=== PATIENT | male | born 1990 | race African-American/Black ===

== ENCOUNTER 2016-07-19 14:16 | Emergency (ER) | payer SELFPAY ==
[~2016-07-19] VITALS: Ht 177.8 cm; Wt 129.3 kg
[2016-07-19 14:50] VITALS: BP 163/100
[2016-07-19] MEDS ORDERED: KETOROLAC TROMETHAMINE 10 MG TABLET PO ONE (15:00)
[2016-07-19] MEDS ORDERED: ONDANSETRON ODT 4 MG TAB.RAPDIS. PO ONE (15:00)
--- NOTE | 2016-07-19 15:05 | PHYS DOC ---
Past Medical History Past Medical History: No Pertinent History Past Surgical History: No Surgical History Alcohol Use: Occasionally Drug Use: Marijuana Adult General Chief Complaint Chief Complaint: BACK PAIN OR INJURY HPI HPI Patient is a 26 year old male presents to the emergency department with a history of right flank pain that started a few days ago. Patient states he has increase discomfort with urination. States there is a foul odor. Patient denies penile discharge, he is sexually active with multiple partners. He continues to state he has been nauseated. Last BM 2 days ago. Denies fever, chills or diarrhea. Review of Systems Review of Systems Constitutional: Denies fever or chills [] Eyes: Denies change in visual acuity, redness, or eye pain [] HENT: Denies nasal congestion or sore throat [] Respiratory: Denies cough or shortness of breath [] Cardiovascular: No additional information not addressed in HPI [] GI: Denies abdominal pain, vomiting, bloody stools or diarrhea. C/o nausea : dysuria denies hematuria [] Musculoskeletal: Denies back pain or joint pain. C/o right flank pain Integument: Denies rash or skin lesions [] Neurologic: Denies headache, focal weakness or sensory changes [] Endocrine: Denies polyuria or polydipsia [] Current Medications Current Medications Current Medications Medications (Trade) Dose Ordered Sig/[facility] Start Time Stop Time Status Last Admin Dose Admin Ketorolac Tromethamine (Toradol) 10 mg 1X ONCE 07/19/16 15:00 07/19/16 15:01 DC 07/19/16 15:33 10 MG Ondansetron HCl (Zofran Odt) 4 mg 1X ONCE 07/19/16 15:00 07/19/16 15:01 DC 07/19/16 15:32 4 MG Allergies Allergies Allergies Coded Allergies Type Severity Reaction Last Updated Verified No Known Drug Allergies 07/19/16 No Physical Exam Physical Exam Constitutional: Well developed, well nourished, no acute distress, non-toxic appearance. [] HENT: Normocephalic, atraumatic, bilateral external ears normal, oropharynx moist, no oral exudates, nose normal. [] Eyes: PERRLA, EOMI, conjunctiva normal, no discharge. [] Neck: Normal range of motion, no tenderness, supple, no stridor. [] Cardiovascular:Heart rate regular rhythm, no murmur [] Lungs & Thorax: Bilateral breath sounds clear to auscultation [] Abdomen: Bowel sounds hypoactive, soft, no tenderness, no masses, no pulsatile masses. [] Skin: Warm, dry, no erythema, no rash. [] Back: No tenderness, right CVA tenderness. [] Extremities: No tenderness, no cyanosis, no clubbing, ROM intact, no edema. [] Neurologic: Alert and oriented X 3, normal motor function, normal sensory function, no focal deficits noted. [] Psychologic: Affect normal, judgement normal, mood normal. [] Current Patient Data Vital Signs Vital Signs Date Time Temp Pulse Resp B/P (MAP) Pulse Ox O2 Delivery O2 Flow Rate FiO2 07/19/16 14:50 98.4 101 14 100 Room Air 98.4 Lab Values Laboratory Tests Test 07/19/16 15:05 Urine Color Yellow Urine Clarity Cloudy Urine pH 6.5 Urine Specific [place] 1.020 Urine Protein >=300 mg/dL (NEG-TRACE) Urine Glucose (UA) Negative mg/dL (NEG) Urine Ketones (Stick) 40 mg/dL (NEG) Urine Blood Large (NEG) Urine Nitrite Negative (NEG) Urine Bilirubin Negative (NEG) Urine Urobilinogen Dipstick 0.2 mg/dL (0.2 mg/dL) Urine Leukocyte Esterase Small (NEG) Urine RBC >40 /HPF (0-2) Urine WBC 1-4 /HPF (0-4) Urine Squamous Epithelial Cells Occ /LPF Urine Bacteria 0 /HPF (0-FEW) Urine Mucus Slight /LPF EKG EKG [] Radiology/Procedures Radiology/Procedures [facility] [address] [place] [address] IMAGING REPORT Signed PATIENT: ERIC MASSEY ACCOUNT: [id number] : 1990 LOCATION: ER AGE: 26 SEX: M EXAM STATUS: REG ER ORD. PHYSICIAN: REGINO DODSON APRN REASON: right flank pain PROCEDURE: CT ABDOMEN PELVIS WO CONTRAST Is an indication right flank pain for 4 days. Axial images through the abdomen and pelvis were obtained. The examination was tailored for detection of renal and/or ureteral calculi. No IV or gastrointestinal contrast was administered. The lung bases are clear. The liver and spleen appear unremarkable. The gallbladder appears grossly normal. No pancreatic pathology is seen. No adrenal masses are seen. No renal calculi are seen on either side. There is mild right hydronephrosis and right hydroureter to the level of a 2 mm calculus at or just above the right UVJ. No left-sided hydronephrosis or hydroureter is seen. An additional finding in the abdomen is not seen. No additional finding is seen in the pelvis. IMPRESSION: 2 mm right ureteral calculus in the distal right ureter or at the UVJ with associated mild obstructive uropathy. PQRS Compliance Statement: One or more of the following individualized dose reduction techniques were utilized for this examination: 1. Automated exposure control 2. Adjustment of the mA and/or kV according to patient size 3. Use of iterative reconstruction technique DICTATED and SIGNED BY: ANGELITO RANGEL MD DATE: 07/19/16 4535 CC: REGINO DODSON APRN; NO PCP; NON,STAFF ~ [] Course & Med Decision Making Course & Med Decision Making Pertinent Labs and Imaging studies reviewed. (See chart for details) Patient was noted to have a 2 mm stone in the right renal calculus. Patient will be discharged home with hydrocodone for severe pain and discomfort. He'll be provided with Flomax and Zofran also be provided with Cipro for an infected kidney stone. Patient was instructed [place] will cause drowsiness do not take if you need to be alert and oriented. He'll be provided with urologist name and number to follow up with. Signs and symptoms to return back to emergency department as been provided. Patient was instructed to strain all urine. He was also recommended to save the stone if he should pass that and take it to his urology appointment. Patient agrees with discharge instructions treatment regimens and follow-up recommendations. [] Dragon Disclaimer Dragon Disclaimer This electronic medical record was generated, in whole or in part, using a voice recognition dictation system. Departure Departure Impression: Primary Impression: Kidney calculi Disposition: 01 HOME, SELF-CARE Condition: STABLE Referrals: NO PCP (PCP) ALEXEY BUTLER STEVE W MD Patient Instructions: Kidney Stones, [id number] Additional Instructions: Activity as tolerated Medication as prescribed [place] will cause drowsiness do not take if you need to be alert and oriented Drink plenty of water and cranberry juice Avoid cranberry juice cocktail, carbonated beverages, caffeine, alcohol and citrus fruits as these are considered irritants to the bladder Strain all urine If you should pass the stone save it and take if to the urology appointment Followup with urology in 7-10 days Return to emergency department as needed for signs and symptoms that become worse. Scripts Ciprofloxacin Hcl (CIPRO) 500 Mg Tablet 1 TAB PO BID, #14 TAB Prov: REGINO DODSON APRN 07/19/16 Ondansetron (ZOFRAN ODT) 4 Mg Tab.rapdis 1 TAB SL Q8HRS, #10 TAB Prov: REGINO DODSON APRN 07/19/16 Tamsulosin Hcl (FLOMAX) 0.4 Mg Cap.er.24h 1 CAP PO DAILY, #30 CAP 0 Refills Prov: REGINO DODSON APRN 07/19/16 Hydrocodone/Apap 5-325 (NORCO 5-325 TABLET) 1 Each Tablet 1 TAB PO PRN Q6HRS Y for PAIN, #20 TAB 0 Refills Prov: REGINO DODSON APRN 07/19/16 REGINO DODSON APRN Jul 19, 2016 15:05
[2016-07-19 15:20] LABS: BILIRUBIN,URINE NEGATIVE (NEG); GLUCOSE,URINE NEGATIVE (NEG); NITRITE,URINE NEGATIVE (NEG); PH,URINE 6.5; PROTEIN,URINE >=300 mg/dL (NEG-TRACE); UROBILINOGEN,URINE 0.2 mg/dL (0.2 mg/dL)
[2016-07-19 15:40] LABS: BACTERIA,URINE 0 /HPF (0-FEW); RBC,URINE >40 /HPF (0-2); SQUAMOUS EPITHELIAL CELL,UR OCC /LPF
--- NOTE | 2016-07-19 16:05 | RAD ---
Is an indication right flank pain for 4 days. Axial images through the abdomen and pelvis were obtained. The examination was tailored for detection of renal and/or ureteral calculi. No IV or gastrointestinal contrast was administered. The lung bases are clear. The liver and spleen appear unremarkable. The gallbladder appears grossly normal. No pancreatic pathology is seen. No adrenal masses are seen. No renal calculi are seen on either side. There is mild right hydronephrosis and right hydroureter to the level of a 2 mm calculus at or just above the right UVJ. No left-sided hydronephrosis or hydroureter is seen. An additional finding in the abdomen is not seen. No additional finding is seen in the pelvis. IMPRESSION: 2 mm right ureteral calculus in the distal right ureter or at the UVJ with associated mild obstructive uropathy. PQRS Compliance Statement: One or more of the following individualized dose reduction techniques were utilized for this examination: 1. Automated exposure control 2. Adjustment of the mA and/or kV according to patient size 3. Use of iterative reconstruction technique
[2016-07-19] MEDS ORDERED: HYDR-971 PO (16:42)
[2016-07-19] MEDS ORDERED: TAMS0.4C97 PO (16:42)
[2016-07-19] MEDS ORDERED: ONDA4TAB10 SL (16:42)
[2016-07-19] MEDS ORDERED: CIPR500T94 PO (16:45)
== END 2016-07-19 16:59 | disposition home or self-care (01) ==
LOC: ER 14:16
DX: N20.0 Calculus of kidney (principal)
CPT/HCPCS: 74176; 81001; 87086; 99285; Q0162